=== PATIENT | female | born 2000 | race Caucasian/White ===

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

== ENCOUNTER 2019-02-02 21:14 | Emergency (ER) | payer MEDICAID, SELFPAY ==
[2019-02-02 21:20] VITALS: BP 133/70; PULSE 92; RESP 18; TEMP 36.7; O2SAT 100
--- NOTE | 2019-02-02 21:23 | W.ED.GENAD ---
Discharge Plan Disposition Patient Disposition: HOME Condition: Good Discharge Details Chief Complaint: Sorethroat Clinical Impression: URI (upper respiratory infection) Primary Care Provider: Joseluis Molina ED Provider: Karthikeyan Chen Home Meds and New Rx's Prescriptions: No Action calcium carbonate [Calcium 500] 500 mg calcium (1,250 mg) tablet,chewable 500 mg PO BID RF: 0 Discharge Instructions Instructions: Upper Respiratory Infection (ED) Additional Instructions: At this time your strep test is negative. I suspect that your symptoms are likely from a virus. Please take Tylenol and Motrin together as needed for fever, chills, or sore throat. Take 10 to 12 cups of water per day to stay well-hydrated. I do recommend continuing to gargle with salt water, taking 2 tablespoons of honey every 4-6 hours for treatment and to help with the sore throat. If you notice any worsening of your symptoms, or any new symptoms such as vomiting, diarrhea, fever, chills, shortness of breath, chest pain, numbness, weakness, or fainting , please return immediately to the emergency department for reevaluation. Please follow up with your primary care provider as soon as possible for reassessment and reevaluation. As always, it was a pleasure participating in your medical care today. Referrals: Joseluis Molina, [employer] [Primary Care Provider] - Medical Decision Making This is a very pleasant 18-year-old female who presents with 3 days of sore throat. Vital signs are notably unremarkable. No significant tonsillar enlargement, no clinical evidence of mono. Strep test is negative. Suspect mild viral upper respiratory infection. Doubt flu, additionally I do not feel that testing for flu would be beneficial at this time as she has had symptoms for 3 days. Recommend continue Tylenol, Motrin, fluids, gargling with salt and honey. Discussed red flags which to return. I have extensively reviewed the treatment plan and discharge instructions with the patient and their family. I have addressed all patient concerns at this time. The patient and family was made aware of what symptoms to monitor for that would warrant a return to the emergency department. Discussed the plan with the patient and family, they demonstrate verbal understanding and agreement with our assessment and plan at this time. HPI General Date/Time Provider Initiated Documentation: 02/02/19 21:14. HPI Narrative: This is a 18-year-old female with no significant past medical history who presents today for evaluation of mild sore throat for the last 3 days. She does admit to mild chills but denies fever. She did take Tylenol this morning but this did not significantly help her symptoms. She has been doing occasional salt water gargles and honey without any improvement. She does admit to mild cough, but denies any headache, vision change, runny nose. She does admit to mild congestion. Cough is nonproductive. She denies hemoptysis. She does state that her significant other does have near identical symptoms that have now resolved which she feels she got from him. She denies any recent contacts with mono. She denies any severe fatigue. Related Data Home Medications Medication Instructions Recorded Confirmed calcium carbonate 500 mg calcium 500 mg PO BID tab 07/09/18 02/02/19 (1,250 mg) chewable tablet Allergies Allergy/AdvReac Type Severity Reaction Status Date / Time No Known Allergies Allergy Unverified 02/02/19 21:21 General Stated Complaint: Sorethroat AMADEO: 4 Review of Systems All systems reviewed & are unremarkable except as noted in HPI and below PFSH Social History Smoking/Tobacco Use Status: Former Tobacco Use Alcohol Intake: never Drug use: Never Substance use type: does not use Do you feel safe at home: Yes Do you feel safe in your relationship?: Yes Exam Narrative Exam Narrative: 1.Const: Well-nourished, Well-developed, appearing stated age 2.Eyes: PERRL, no conjunctival injection, and symmetrical lids. 3.ENT: Atraumatic external nose and ears. Moist MM. Neck: Symmetric, trachea midline, No thyromegaly. Minimal cobblestoning in the posterior oropharynx. No significant enlargement of the tonsils, no evidence of tonsillar exudate. No significant cervical lymphadenopathy. Tympanic membranes are normal bilaterally. Patient demonstrates good movement of cervical neck. There is no nuchal rigidity, no nuchal tenderness. Patient is able to flex the neck without any difficulty or significant pain. Negative Kernig's and Brudzinski sign. 4.CVS: +S1/S2, No murmurs or gallops. Peripheral pulses 2+ and equal in all extremities. Brisk capillary refill in all extremities. 5.RESP: Unlabored respiratory effort. Clear to auscultation bilaterally. No wheezes rales or rhonchi 6.GI: Soft, Nontender/Nondistended, No hepatosplenomegaly. No guarding or rebound. 7.MSK: Normocephalic/Atraumatic, Extremities w/o deformity or ttp No cyanosis or clubbing, Normal movement of all extremities 8.Skin: Warm, Dry. No rashes or lesions. 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 Sensation grossly intact, no focal neurologic deficits. 10.Psych: (AAO) x3. Appropriate mood and affect Course Vital Signs Vital signs: Vital Signs Temperature 36.7 C 02/02/19 21:20 Pulse 92 H 02/02/19 21:20 Respiratory Rate 18 02/02/19 21:20 Blood Pressure 133/70 02/02/19 21:20 Pulse Oximetry 100 02/02/19 21:20 Temperature 36.7 C 02/02/19 21:20 Temperature Source Skin 02/02/19 21:20 Pulse 92 H 02/02/19 21:20 Respiratory Rate 18 02/02/19 21:20 Blood Pressure 133/70 02/02/19 21:20 Blood Pressure Position Sitting 02/02/19 21:20 Pulse Oximetry 100 02/02/19 21:20 Oxygen Delivery Method Room Air 02/02/19 21:20 Oxygen Flow Rate 0 02/02/19 21:20 Pain Level 5 02/02/19 21:20
== END 2019-02-02 21:30 | disposition home or self-care (01) ==
PROVIDERS: Emergency Provider Student in an Organized Health Care Education/Training Program; PCP Nurse Practitioner Family
DX: J06.9 Acute upper respiratory infection, unspecified (principal)
CPT/HCPCS: 87880; 99282

== ENCOUNTER 2019-03-09 09:53 | Outpatient (REF) | payer MEDICAID, SELFPAY ==
[2019-03-11 15:15] LABS: Chlamydia Result Negative (Negative)
[2019-03-15 09:39] LABS: GC Result Negative (Negative)
== END 2019-03-09 10:13 ==
LOC: NCHCN 09:53
PROVIDERS: PCP Nurse Practitioner Family; Visit Provider Nurse Practitioner Family
DX: N93.9 Abnormal uterine and vaginal bleeding, unspecified (principal); Z11.3 Encounter for screening for infections with a predominantly sexual mode of transmission
CPT/HCPCS: 87491; 87591

== ENCOUNTER 2019-11-16 10:38 | Outpatient (REF) | payer MEDICAID, SELFPAY ==
[2019-11-18 17:44] LABS: SARS-CoV-2 RNA Undetected (Undetected)
== END 2019-11-16 10:58 ==
LOC: LBN 10:38
PROVIDERS: PCP Nurse Practitioner Family; Visit Provider Nurse Practitioner Adult Health
DX: Z11.59 Encounter for screening for other viral diseases (principal)
CPT/HCPCS: U0003

== ENCOUNTER 2020-02-08 12:25 | Outpatient (REF) | payer MEDICAID, SELFPAY ==
[2020-02-09 12:59] LABS: SARS-CoV-2 RNA Not Detected (NotDetected); SARS-CoV-2 RNA Source Nasal/Nares
== END 2020-02-08 12:45 ==
LOC: LBN 12:25
PROVIDERS: PCP Nurse Practitioner Family; Visit Provider Nurse Practitioner Adult Health
DX: Z11.59 Encounter for screening for other viral diseases (principal)
CPT/HCPCS: U0003

== ENCOUNTER 2020-07-26 06:51 | Emergency (ER) | payer MEDICAID, SELFPAY ==
[2020-07-26] VITALS (18 sets, daily range): BP systolic 104–130; BP diastolic 61–69; PULSE 93–142; RESP 15–31; TEMP 36.6–37; O2SAT 98–100
--- NOTE | 2020-07-26 08:16 | ED.GENADUL_ITS ---
Discharge Plan Disposition Patient Disposition: HOME Condition: Stable Discharge Details Clinical Impression: Pharyngitis Primary Care Provider: Joseluis Molina ED Provider: Roseline Dias Home Meds and New Rx's Prescriptions: New penicillin V potassium 500 mg tablet 500 mg PO BID 10 Days Qty: 20 RF: 0 No Action medroxyprogesterone [Depo-Provera] 150 mg/mL Syringe 150 mg IM [id number] RF: 0 Discharge Instructions Instructions: Pharyngitis (ED) Additional Instructions: Gargle with warm salt water 3 times daily as needed. Please take Tylenol or Ibuprofen with food every 4-6 hours as needed for pain and swelling. Follow up with primary care provider in 3-5 days. Return to ED sooner if any worsening or concerns. Increase oral fluids. Stand Alone Forms: Work Release Referrals: Joseluis Molina, FAMILY THERAPIST [Primary Care Provider] - 07/30/20 Medical Decision Making 20-year-old female presents the ER with sore throat x24 hours, denies cough abdominal pain, shortness of breath. At this time due to patient's elevated heart rate and clinical symptoms will order basic labs and a liter of normal saline. We will give penicillin and dexamethasone here in the department. 0940: Patient reevaluation, she reports increased improvement in her throat discomfort status post at some methadone. Her rate still remains at 109 after 1 L of normal saline. We will hang on her back. Temperature is 98.6. CBC shows elevated white blood cell count of 16.97, absolute neutrophils 14.37, monocyte 0.93. CMP is largely within normal limits. [place] screen is negative. At this time strep screen is still pending. I do suspect strep throat however, differential diagnosis includes but not limited to Covid, viral pharyngitis, Gonococcal pharyngitis. Will refer patient to PCP and give course of PCN VK twice daily x 10 days. HPI General Mode of arrival: ambulatory . Date/Time Provider Initiated Documentation: 07/26/20 07:17 . Limitations to Documentation: no limitations . Information obtained by: patient . HPI Narrative: 20-year-old female presents the ER with chief complaint of sore throat for the last 24 hours. Patient states that it is worse on the left. She is speaking in full sentences and is handling her secretions well however she states it is painful to swallow. 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 She denies any body aches, chills, abdominal pain, dysuria or problems urinating. She denies any vaginal discharge or bleeding. She reports taking Tylenol this morning prior to arrival. Initial exam her heart rate is elevated at 120. Her rapid strep swab was negative for strep screen at this time. She has no past medical history. She is a smoker and endorses occasional alcohol use. Related Data Home Medications Medication Instructions Recorded Confirmed medroxyprogesterone [Depo-Provera] 150 mg IM [id number] 07/26/20 07/26/20 penicillin V potassium 500 mg PO BID 10 Days #20 tab 07/26/20 Previous Rx's Medication Instructions Recorded penicillin V potassium 500 mg PO BID 10 Days #20 tab 07/26/20 Allergies Allergy/AdvReac Type Severity Reaction Status Date / Time No Known Allergies Allergy Unverified 02/02/19 21:21 General Stated Complaint: Sorethroat AMADEO: 3 Review of Systems Narrative: Constitutional: Negative for weight loss, alert and oriented, well groomed, normal body habitus, appears comfortable. HEENT: Denies trauma, headaches, blurry vision, nasal discharge. Reports sore throat and painful swallowing. Chest: Denies chest pain, palpitations, irregular rhythm, hypertension. Respiratory: Denies Shortness of breath, cough, hemoptysis. GI: Denies abdominal pain, nausea, vomiting, diarrhea, constipation. : Denies dysuria, hematuria, flank pain, rectal bleeding. Neuro: Denies dizziness, blurry vision, weakness, syncope, headache or facial numbness. Hematologic: Denies easy bruising, intolerance to heat or cold, hair loss. [facility] Social History Smoking/Tobacco Use Status: Current every day Tobacco Type: cigarettes Smoking risk assessment performed?: Yes Alcohol Intake: current Alcohol Intake frequency: a few times a week Alcohol type: beer Drug use: Never Substance use type: does not use Do you feel safe at home: Yes Do you feel safe in your relationship?: Yes Exam Narrative Exam Narrative: Constitutional: Alert and oriented x3. Appears stated age. Normal body habitus. Head: Normocephalic, no trauma. Eyes: Pupils PERRLA, Red reflex noted, EOM's intact. Eyelids symmetrical without lesions, discharge, or swelling. ENT: Bilateral TM's WNL, External ear normal to inspection, no mastoid TTP, swelling, or erythema, Nasal turbinates WNL, no nasal discharge. Normal dentition, posterior pharynx beefy red, tonsils 1+ bilaterally, exudate positive greater on the left than the right. Uvula is midline. No evidence of peritonsillar abscess, no stridor. Chest: RRR, Normal S1, S2, distal pulses intact. Resp: Lungs clear to auscultation bilaterally, no wheezes, rales, or rhonchi. Abdominal: Soft, nontender to palpation all 4 quadrants. Musculoskeletal: Normal gait, 5/5 strength to all four extremities. Skin: No suspicious rashes or lesions. Capillary refill less than 2 sec. Neurologic: Cranial nerves II-XII intact. Alert and oriented x 3. DTR's intact. Hematologic/Lymphatic: No ecchymosis, no lymphadenopathy. Course Vital Signs Vital signs: Vital Signs Temperature 36.7 C 07/26/20 06:58 Pulse 142 H 07/26/20 06:58 Blood Pressure 130/69 07/26/20 06:58 Pulse Oximetry 99 07/26/20 06:58 Temperature 36.7 C 07/26/20 06:58 Temperature Source Temporal Artery Scan 07/26/20 06:58 Pulse 119 H 07/26/20 07:48 Pulse 118 H 07/26/20 07:48 Respiratory Rate 21 07/26/20 07:48 Respiratory Effort Non-Labored 07/26/20 07:00 Blood Pressure 113/65 07/26/20 07:48 Blood Pressure Mean 76 07/26/20 07:48 Blood Pressure Position Sitting 07/26/20 06:58 Pulse Oximetry 99 07/26/20 07:48 Oxygen Delivery Method Room Air 07/26/20 06:58 Oxygen Flow Rate 0 07/26/20 06:58 Pain Level 7 07/26/20 06:58 Lab/Test Results Lab/Test Results: 07/26/20 07:10 Pharynx Streptococcus Screen ([facility]) - Pending POC Strep Test-NANY(Rapid) Start: 07/26/20 07 :18 Freq: Status: Complete Protocol: Document 07/26/20 07:18 EC (Rec: 07/26/20 07:18 [id number]) Strep test-NANY(Rapid)-POC POC-Strep test-NANY (Rapid) Negative POC-Strep test-NANY (Rapid) Negative
[2020-07-26] MEDS: Dexamethasone 10 MG/ML VIAL PO (08:37)
[2020-07-26] MEDS: Normal Saline Flush 10 ML SYR IVP (08:38)
[2020-07-26] MEDS: Penicillin V POTASSIUM 500 MG TAB PO (08:38)
[2020-07-26] MEDS: Normal Saline 1,000 ML 1000 ML IV ×2 (08:48→09:42)
[2020-07-26 08:50] LABS: Abs Immature Grans 0.07 10^3/uL (0.0-0.06); Absolute Eosinophil Count 0.02 10^3/uL (0.0-0.7); Absolute Lymphocyte Count 1.54 10^3/uL (1.2-3.4); Absolute Monocyte Count 0.93 10^3/uL (0.1-0.8); Absolute Neutrophil Count 14.37 10^3/uL (1.2-6.7); Basophils % 0.2; Eosinophils % 0.1; HCT 41.3 % (36.0-46.0); HGB 13.9 g/dL (11.2-15.7); Immature Grans % 0.4; Lymphocytes % 9.1; MCH 32.8 pg (27.0-33.0); MCHC 33.7 % (32.0-36.0); MCV 97.4 fL (80-95); MPV 9.3 fL (8.0-11.0); Monocytes % 5.5; Neutrophils % 84.7; Nucleated RBC 0 %; Platelet Count 266 10^3/uL (130-400); RBC 4.24 10^6/uL (3.93-5.22); RDW 11.1 % (11.7-14.6); RDW-SD 39.9 fL; WBC 16.97 10^3/uL (4.4-10.8)
[2020-07-26 08:51] LABS: Absolute Basophil Count 0.03 10^3/uL (0.0-0.2)
[2020-07-26 09:04] LABS: Mono Screening Negative (Negative)
[2020-07-26 09:06] LABS: ALT 14 U/L (14-59); AST 10 U/L (15-37); Alkaline Phosphatase 78 U/L (46-116); Anion Gap 8.9 mmol/L (3-11); BUN 9 mg/dL (7-18); Bilirubin, Total 0.6 mg/dL (0.2-1.0); CO2 27.1 mmol/L (21.0-32.0); CREATININE 0.8 mg/dL (0.55-1.02); Calcium 8.5 mg/dL (8.5-10.1); Chloride 106 mmol/L (98-107); Glucose 95 mg/dL (74-106); Sodium 142 mmol/L (136-145); Total Protein 7.7 g/dL (6.4-8.2)
== END 2020-07-26 10:52 | disposition home or self-care (01) ==
PROVIDERS: Emergency Provider Registered Nurse Emergency; PCP Nurse Practitioner Family
DX: J02.9 Acute pharyngitis, unspecified (principal); R00.0 Tachycardia, unspecified
CPT/HCPCS: 80053; 81025; 87880; 96360; 96361; 99283; 85025; 86308; 87081; J1100

== ENCOUNTER 2021-01-24 19:11 | Emergency (ER) | payer MEDICAID, SELFPAY ==
[2021-01-24 19:14] VITALS: BP 124/78; PULSE 100; RESP 18; TEMP 36.7; O2SAT 99
--- NOTE | 2021-01-24 20:08 | ED.GENADUL_ITS ---
Discharge Plan Disposition Patient Disposition: HOME Condition: Good Discharge Details Clinical Impression: Avulsion of fingernail Primary Care Provider: Agatha Cullen ED Provider: Tip Martinez Meds and New Rx's Prescriptions: Continued medroxyprogesterone [Depo-Provera] 150 mg/mL Syringe 150 mg IM [id number] RF: 0 Discharge Instructions Additional Instructions: Dressing change tomorrow evening. Tylenol or Motrin if needed. Nail will eventually fall of as new nail grows out. File the acrylic nail smooth. Keep secure with band-aid. Medical Decision Making Patient with avulsion of her right pinky fingernail that is only attached slightly at the ulnar cuticle. No other injury. No nailbed injury. Cuticle in tact. Digital block done. Nail repositioned under the cuticle. Acrylic nail trimmed back so as to avoid snagging. Vaseline gauze dressing applied to be removed in 24 hours. At that point should be able to use Band-Aid to keep the avulsed nail secured until new nail begins growing out. Patient instructed to file the acrylic nail down further to smooth it out. Return to ED if any problems. HPI General Mode of arrival: ambulatory . Date/Time Provider Initiated Documentation: 01/24/21 20:08 . Limitations to Documentation: no limitations . Information obtained by: patient and RN notes reviewed . HPI Narrative: Patient presents to the ED with avulsion of her pinky fingernail on her right hand. Patient has acrylic nails. She was playing with her dog and the leash caught her fingernail. She denies any other injury. He otherwise has normal range of motion and sensation in her hand. Related Data Home Medications Medication Instructions Recorded Confirmed medroxyprogesterone [Depo-Provera] 150 mg IM [id number] 07/26/20 01/24/21 Allergies Allergy/AdvReac Type Severity Reaction Status Date / Time No Known Allergies Allergy Unverified 01/24/21 19:17 General Stated Complaint: Recheck AMADEO: 4 Review of Systems Constitutional Constitutional: Denies fever(s) Cardiovascular Cardiovascular: Denies dyspnea Respiratory Respiratory: Denies cough and Denies dyspnea Musculoskeletal Musculoskeletal: Denies arthralgias, Denies joint swelling, Denies limited range of motion and Denies numbness Neurologic Neurologic: Denies numbness [facility] Medical History No significant past medical history Surgical History No significant past surgical history Social History Smoking/Tobacco Use Status: Current every day Tobacco Type: cigarettes Smoking risk assessment performed?: Yes Alcohol Intake: current Alcohol Intake frequency: a few times a week Alcohol type: beer Drug use: Never Substance use type: does not use Do you feel safe at home: Yes Do you feel safe in your relationship?: Yes Exam Narrative Exam Narrative: Const: WDWN female in NAD. HEENT: NC/AT. Normal facial exam. Eyes: Normal conjunctiva and sclera. Neck: Supple. Trachea midline. Lungs: Normal respiratory effort. Neuro: A+O x 3. Normal speech, mentation, gait. Cranial nerves II - XII grossly intact. No gross motor or sensory deficit. Ext: No C/C/E. Right pinky fingernail avulsed completely off except for small piece ulna cuticle area. No bleeding. No cuticle laceration. Normal ROM and sensation. Skin: Warm and dry without laceration. Course Vital Signs Vital signs: Vital Signs Temperature 98.1 F 01/24/21 19:14 Pulse 100 H 01/24/21 19:14 Respiratory Rate 18 01/24/21 19:14 Blood Pressure 124/78 01/24/21 19:14 Pulse Oximetry 99 01/24/21 19:14 Temperature 98.1 F 01/24/21 19:14 Temperature Source Temporal Artery Scan 01/24/21 19:14 Pulse 100 H 01/24/21 19:14 Respiratory Rate 18 01/24/21 19:14 Respiratory Effort Non-Labored 01/24/21 19:18 Blood Pressure 124/78 01/24/21 19:14 Blood Pressure Position Sitting 01/24/21 19:14 Pulse Oximetry 99 01/24/21 19:14 Oxygen Delivery Method Room Air 01/24/21 19:14 Oxygen Flow Rate 0 01/24/21 19:14 Pain Level 4 01/24/21 19:14 Procedures Nerve Block Nerve Block 1: Time out performed: Yes Local Anesthetic: Lidocaine 1% Amount of anesthesia used (mL): 3 Side: right Nerve Blocks: digital Procedure Successful: Yes Patient Tolerated Procedure: well Complications: none
[2021-01-24 20:55] VITALS: RESP 18
== END 2021-01-24 20:56 | disposition home or self-care (01) ==
PROVIDERS: Emergency Provider Emergency Medicine; PCP Nurse Practitioner Family
DX: S61.306A Unspecified open wound of right little finger with damage to nail, initial encounter (principal); X58.XXXA Exposure to other specified factors, initial encounter
CPT/HCPCS: 64450

== ENCOUNTER 2021-01-25 12:07 | Outpatient (REF) | payer MEDICAID, SELFPAY | END 2021-01-25 12:08 | disposition home or self-care (01) | LOC: NCHCN 12:07 | PROVIDERS: PCP Nurse Practitioner Family; Visit Provider Family Medicine | DX: N39.0 Urinary tract infection, site not specified (principal); R21 Rash and other nonspecific skin eruption | CPT/HCPCS: 87086 ==